=== PATIENT | female | born 1985 | race Caucasian/White ===

== ENCOUNTER 2021-02-01 11:37 | Emergency (ER) | payer OTHER ==
[~2021-02-01] VITALS: Ht 177.8 cm; Wt 81.6 kg
--- NOTE | 2021-02-01 11:45 | NUR ---
Dr [email or web address], medical screening exam in progress
[2021-02-01] MEDS ORDERED: ACETAMINOPHEN ES 500 MG TABLET PO ONE (12:00)
[2021-02-01] MEDS ORDERED: ACETAMINOPHEN ES 500 MG TABLET ONE (12:12)
[2021-02-01] MEDS ORDERED: ACET1TAB23 PO (13:45)
[2021-02-01] MEDS ORDERED: IBUP-1955 PO (13:45)
--- NOTE | 2021-02-01 13:50 | NUR ---
Patient discharged to home in stable condition. Written and verbal after care instructions given. Patient verbalizes understanding of instructions. Stressed follow up or return to ER for worsening s/s. Belongings with patient, VVS, steady gait.
[2021-02-01 13:57] VITALS: BP 122/78
== END 2021-02-01 13:52 | disposition home or self-care (01) ==
LOC: ER 11:37
DX: S62.617A Displaced fracture of proximal phalanx of left little finger, initial encounter for closed fracture (principal); S40.212A Abrasion of left shoulder, initial encounter; V00.841A Fall from standing electric scooter, initial encounter; Y93.89 Activity, other specified; Y92.89 Other specified places as the place of occurrence of the external cause; M25.512 Pain in left shoulder
CPT/HCPCS: 73110; 73130; A4663; A9150

== ENCOUNTER 2021-05-02 11:45 | Emergency (ER) | payer OTHER ==
[~2021-05-02] VITALS: Ht 177.8 cm; Wt 81.6 kg
[~2021-05-02 11:45] MED LIST: ACET1TAB23 PO; IBUP-1955 PO
[2021-05-02] MEDS ORDERED: ONDANSETRON 4 MG/2 ML VIAL IV ONE (12:30)
[2021-05-02] MEDS ORDERED: IV NORMAL SALINE 1000 ML BAG IV ONE (12:30)
[2021-05-02 12:39] LABS: *BILIRUBIN,URIN NEGATIVE (NEGATIVE); *BLOOD, URINE NEGATIVE (NEGATIVE); *CLARITY,URINE CLEAR (CLEAR); *COLOR,URINE YELLOW (YELLOW); *KETONES,URINE NEGATIVE (NEGATIVE); *UROBILINOGEN,URINE 0.2 E.U./dl (NORMAL); LEUKOCYTE ESTERASE ,URINE NEGATIVE (NEGATIVE); NITRITE, URINE NEGATIVE (NEGATIVE); PH,URINE 5.5 (5.0-8.0); UGLUCOSE NEGATIVE (NEGATIVE)
[2021-05-02] MEDS ORDERED: ONDANSETRON 4 MG/2 ML VIAL ONE (12:51)
[2021-05-02 13:10] LABS: HEMATOCRIT 40.5 % (31.2-41.9); MEAN CORPUSCULAR HEMOGLOBIN 28.5 uug (24.7-32.8); MEAN CORPUSCULAR VOLUME 84.6 fL (75.5-95.3); PLATELET COUNT (AUTO) 216 K/uL (179-408)
[2021-05-02 13:12] LABS: CARBON DIOXIDE 23 mmol/L (21-32); CHLORIDE 106 mmol/L (98-107); CREATININE 0.9 mg/dL (0.6-1.3); GLUCOSE 81 mg/dL (74-106); POTASSIUM 4.1 mmol/L (3.5-5.1); UREA NITROGEN, BLOOD 10 mg/dL (7-18)
[2021-05-02 13:14] LABS: LIPASE 55 U/L (73-393)
[2021-05-02 13:24] LABS: ALANINE AMINOTRANSFERASE 23 U/L (14-59); ALKALINE PHOSPHATASE 82 U/L (50-136); ASPARTATE AMINOTRANSFERASE 18 U/L (15-37); BILIRUBIN,DIRECT 0.1 mg/dL (0.0-0.2); BILIRUBIN,TOTAL 0.5 mg/dL (0.2-1.0); TOTAL PROTEIN, SERUM 7.1 g/dL (6.4-8.2)
[2021-05-02] MEDS ORDERED: ONDA4TAB5 PO (13:49)
--- NOTE | 2021-05-02 14:00 | NUR ---
Patient discharged to home in stable condition. Written and verbal after care instructions given. Patient verbalizes understanding of instructions. Stressed follow up or return to ER for worsening s/s.pt walks in steady gait. pt says feels better, a copy of all the studies provided for pt to follow up.
[2021-05-02 14:01] VITALS: BP 119/77
== END 2021-05-02 14:02 | disposition home or self-care (01) ==
LOC: ER 11:45
DX: R10.9 Unspecified abdominal pain (principal); R93.5 Abnormal findings on diagnostic imaging of other abdominal regions, including retroperitoneum
CPT/HCPCS: 36415; 76856; 80048; 80076; 81003; 83690; 84702; 85025; 96361; 96374; 99284; J2405; J7030